=== PATIENT | male | born 1960 | race American Indian/Alaskan Native ===

== ENCOUNTER 2018-03-18 13:31 | Emergency (ER) | payer MEDICAID, OTHER, SELFPAY ==
[2018-03-18 13:40] VITALS: BP 127/76; PULSE 85; RESP 20; TEMP 36.8; O2SAT 95; BMI 47.0
[2018-03-18 14:59] VITALS: BP 119/62; PULSE 79; O2SAT 96
--- NOTE | 2018-03-18 15:09 | ED.SKABFB ---
HPI - Skin/Abscess/Foreign Bdy <JOSÉ Paulson - Last Filed: 03/18/18 22:19> General Chief complaint: Skin/Abscess/Foreign Body Stated complaint: states painful sore on Right shoulder Time Seen by Provider: 03/18/18 14:53 Source: patient Mode of arrival: ambulatory Limitations: no limitations History of Present Illness HPI narrative: A 58-year-old male with history of hypertension is a nonsmoker here for complaint of abscess to his right shoulder. He states that he noticed the abscess a couple of days ago and then felt wetness on his shirt as he said it drained. He denies any fevers. He denies any trauma to the area. He states he has a history of having MRSA in the past. He denies any other concerns or complaints at this timeframe. MD complaint: abscess/boil Related Data Previous Rx's Medication Instructions Recorded clindamycin HCl 300 mg PO QID #28 cap 03/18/18 Review of Systems <JOSÉ Paulson - Last Filed: 03/18/18 22:19> Constitutional Denies chills, Denies fever(s), Denies lethargy and Denies weakness Eyes Denies change in vision, Denies eye discharge, Denies irritation and Denies loss of vision ENT Ears, Nose, Mouth, and Throat: Denies change in voice, Denies neck pain and Denies sore throat Cardiovascular Denies chest pain, Denies irregular heart rhythm, Denies lightheadedness, Denies palpitations, Denies dyspnea, Denies dyspnea on exertion and Denies orthopnea Respiratory Denies cough, Denies dyspnea, Denies dyspnea on exertion and Denies wheezing Gastrointestinal Gastrointestinal: Denies abdominal pain, Denies change in bowel habits, Denies diarrhea, Denies nausea and Denies vomiting Genitourinary Denies hematuria, Denies flank pain, Denies urinary incontinence and Denies urinary urgency Musculoskeletal Denies neck pain Integumentary/Breasts Comments: Abscess to right shoulder Neurologic Denies confusion, Denies loss of vision and Denies weakness Psychiatric Denies anxiety, Denies confusion, Denies depression, Denies homicidal ideation and Denies suicidal ideation Endocrine Denies palpitations Hematologic/Lymphatic Denies easy bruising Allergic/Immunologic Denies wheezing Exam <JOSÉ Paulson - Last Filed: 03/18/18 22:19> Initial Vital Signs Initial Vital Signs: Vital Signs Temperature 98.3 F 03/18/18 13:40 Pulse Rate 85 03/18/18 13:40 Respiratory Rate 20 03/18/18 13:40 Blood Pressure 127/76 03/18/18 13:40 Pulse Oximetry 95 03/18/18 13:40 HENMT Mouth: oral mucosae normal and moist mucous membranes Eyes General: appearance normal, both eyes and all related structures Eyelids: eyelids normal Conjunctivae: conjunctivae normal Sclera: sclerae normal Pupils: PERRL EOM: EOM intact bilaterally Chest Chest: normal inspection of the chest Resp Effort & Inspection: normal respiratory effort, able to speak in complete sentences, no respiratory distress and no use of accessory muscles Auscultation: clear to auscultation bilaterally, no rales, no rhonchi and no wheezes Cardio Rate: regular rate Rhythm: regular rhythm Heart Sounds: no click, no gallops, no murmurs and no rubs Pulses: normal peripheral pulses Skin General: No jaundice and No petechiae Other: Abscess to posterior right shoulder approximately 4 cm in diameter no surrounding erythema. Positive fluctuance induration Neuro General: alert, oriented x3, gait normal and no focal motor deficits Speech: speech normal <Ysabel Armijo MD - Last Filed: 03/19/18 14:11> Initial Vital Signs Initial Vital Signs: Vital Signs Temperature 98.3 F 03/18/18 13:40 Pulse Rate 85 03/18/18 13:40 Respiratory Rate 20 03/18/18 13:40 Blood Pressure 127/76 03/18/18 13:40 Pulse Oximetry 95 03/18/18 13:40 Procedures <JOSÉ Paulson - Last Filed: 03/18/18 22:19> Abscess I/D Site: other (Posterior right shoulder) Side (if applicable): right Local Anesthetic: lidocaine 1% Amount of anesthesia used (mL): 2 Technique: incised with #11 blade Amount of fluid expressed (mL): 40 Irrigation: Yes Packing used?: plain Course <JOSÉ Paulson - Last Filed: 03/18/18 22:19> Orders Ordered: ED Orders 03/18/18 16:00 Wound Culture and Gram Stain Stat Vital Signs - 8 hr 03/18/18 14:59 03/18/18 16:20 Pulse Rate 79 69 Respiratory Rate 15 Blood Pressure [Right Arm] 119/62 141/77 H Pulse Oximetry 96 96 <Ysabel Armijo MD - Last Filed: 03/19/18 14:11> Orders Ordered: ED Orders 03/18/18 16:00 Wound Culture and Gram Stain Stat Vital Signs - 8 hr 03/18/18 14:59 03/18/18 16:20 Pulse Rate 79 69 Respiratory Rate 15 Blood Pressure [Right Arm] 119/62 141/77 H Pulse Oximetry 96 96 MDM - Skin/Abscess/Foreign Bdy <JOSÉ Paulson - Last Filed: 03/18/18 22:19> [facility] Narrative Medical decision making narrative: Abscess to right posterior shoulder was incised and drained. Good amount of purulent drainage was expressed. Wound irrigated with copious amounts of normal saline. Wound packed with plain packing. Wound dressed with a dressing. Culture was obtained and is pending. Patient is placed on clindamycin. Follow up with primary care provider in the next couple days for re-evaluation and wound repacking. [id number] Tylenol or Motrin as needed for discomfort return emergency room for any worsening symptoms. Discharge Plan Departure Patient Disposition: Home Clinical Impression: Abscess of right shoulder Discharge Date/Time: 03/18/18 16:55 Interventions: ED Discharge Assessment Last Done: 03/18/18 16:16 Instructions: DI for Incision and Drainage of a Skin Abscess Activity Restrictions/Additional Instructions: Abscess to the right shoulder was incised and drained today in the emergency room. You will need to follow up with her primary care provider in the next couple days for re-evaluation and have the wound repacked. UR placed on antibiotics called clindamycin use as directed. Use [id number] ibuprofen as needed for any discomfort. For any worsening symptoms return to the emergency room. Prescriptions: New clindamycin HCl 300 mg capsule 300 mg PO QID Qty: 28 RF: 0 Referrals: [facility] [Provider Group]
[2018-03-18 16:20] VITALS: BP 141/77; PULSE 69; RESP 15; O2SAT 96
== END 2018-03-18 16:55 | disposition home or self-care (01) ==
PROVIDERS: Emergency Provider Nurse Practitioner Family
DX: L02.413 Cutaneous abscess of right upper limb (principal)
CPT/HCPCS: 10060; 87070; 87075; 87205; 99282; 99283